=== PATIENT | female | born 1970 | race Hispanic/Latino ===

== ENCOUNTER 2016-07-23 09:29 | Outpatient (CLI) | payer BC ==
[2016-07-23 12:32] LABS: Cardiac Risk 3.8 (Less than 4.5)
== END 2016-07-23 09:30 | disposition home or self-care (01) ==
LOC: NAVSJIPCSP 09:29
PROVIDERS: ATTEND Internal Medicine
DX: E78.5 Hyperlipidemia, unspecified (principal)
CPT/HCPCS: 36415; 80061